=== PATIENT | male | born 1945 | race Caucasian/White ===

== ENCOUNTER 2019-08-15 18:59 | Observation (INO) ==
[2019-08-15 19:48] LABS: Basophils # 0.1 K/mcL (0.0-0.2); Basophils % 0.7 %; Eosinophils # 0.1 K/mcL (0.0-0.6); Eosinophils % 0.7 %; Hemoglobin 13.1 g/dL (12.9-16.9); Immature Granulocytes % 0.6 % (0-4); Lymphocytes # 1.9 K/mcL (0.6-4.6); Lymphocytes % 21.4 %; Mean Corpuscular HGB Conc 32.8 g/dL (31.6-35.5); Mean Corpuscular Hemoglobin 30.3 pg (28.0-33.3); Mean Corpuscular Volume 92.6 fL (83.0-100.0); Mean Platelet Volume 9.7 fL (9.4-12.4); Monocytes # 1.6 K/mcL (0.0-1.3); Monocytes % 18.4 %; Neutrophils # 5.1 K/mcL (1.6-8.9); Platelet Count 469 K/mcL (140-400); Red Blood Count 4.32 M/mcL (4.19-5.50); Red Cell Distribution Width 17.4 % (11.5-14.5); Segmented Neutrophils % 58.2 %; White Blood Count 8.8 K/mcL (4.3-11.1)
[2019-08-15 19:56] LABS: INR 1.1; Prothrombin Time 12.2 Seconds (9.4-12.1)
[2019-08-15 19:59] LABS: Activated Partial Thrombo Time 35.8 Seconds (26.0-36.0)
[2019-08-15 20:13] LABS: BUN/Creatinine Ratio 24 (6-26); Blood Urea Nitrogen 49 mg/dL (8-23); Calcium 9.3 mg/dL (8.6-10.3); Carbon Dioxide 31 mEq/L (23-29); Chloride 97 mEq/L (98-107); Glucose 109 mg/dL (70-105); Osmolality,Calculated 298 (280-300); Potassium 3.9 mEq/L (3.5-5.1); Sodium 137 mEq/L (136-145); Troponin I < 0.03 ng/mL (< 0.04); eGFR For African Americans 39 (> 60); eGFR For Non-African Americans 32 (> 60)
[2019-08-16] MEDS ORDERED: Naloxone 0.4 MG/ML INJ IVP PRN (00:16)
[2019-08-16] MEDS ORDERED: Nitroglycerin 0.4 MG TAB.SUBL SL PRN (00:16)
[2019-08-16] MEDS ORDERED: Morphine Sulfate 2 MG/ML SYRINGE IVP PRN (00:16)
[2019-08-16] MEDS: Apixaban 5 MG TABLET PO SCH ×3 (00:41→21:34)
[2019-08-16] MEDS: Gabapentin 300 MG CAPSULE PO SCH ×3 (00:41→21:34)
[2019-08-16 00:52] LABS: Sodium, Urine 55.9 mEq/L
[2019-08-16 01:39] LABS: Basophils # 0.1 K/mcL (0.0-0.2); Basophils % 0.6 %; Eosinophils # 0.1 K/mcL (0.0-0.6); Eosinophils % 0.7 %; Hematocrit 39.4 % (37.5-50.1); Hemoglobin 12.6 g/dL (12.9-16.9); Immature Granulocytes % 0.5 % (0-4); Lymphocytes # 1.9 K/mcL (0.6-4.6); Mean Corpuscular Hemoglobin 30.1 pg (28.0-33.3); Mean Corpuscular Volume 94.3 fL (83.0-100.0); Mean Platelet Volume 9.8 fL (9.4-12.4); Monocytes # 1.1 K/mcL (0.0-1.3); Monocytes % 13.5 %; Neutrophils # 5.1 K/mcL (1.6-8.9); Platelet Count 419 K/mcL (140-400); Red Blood Count 4.18 M/mcL (4.19-5.50); Red Cell Distribution Width 17.2 % (11.5-14.5); Segmented Neutrophils % 61.7 %; White Blood Count 8.2 K/mcL (4.3-11.1)
[2019-08-16 01:46] LABS: Prothrombin Time 11.5 Seconds (9.4-12.1)
[2019-08-16 02:00] LABS: Albumin 3.8 g/dL (3.5-5.7); Albumin/Globulin Ratio 1.3 (1.1-2.2); Bilirubin,Total 0.4 mg/dL (0.3-1.0); Chol/HDL Ratio 4.1 (0-4.9); Globulin 2.9 g/dL (2.4-3.5); Magnesium 2.2 mg/dL (1.6-2.6); Phosphorous 4.3 mg/dL (2.7-4.5); Potassium 3.8 mEq/L (3.5-5.1); Total Protein 6.7 g/dL (6.4-8.9)
[2019-08-16] MEDS ORDERED: Regadenoson 0.4 MG/5 ML SYRINGE IVP ONE (06:24)
[2019-08-16] MEDS ORDERED: Aspirin 81 MG TAB.CHEW PO SCH (09:00)
[2019-08-16] MEDS: Aspirin Enteric Coated 81 MG Tablet PO SCH (10:11)
[2019-08-16] MEDS ORDERED: Fluticasone Propionate Nasal 50 MCG/SPRAY BOTTLE NS PRN (12:33)
[2019-08-16] MEDS ORDERED: Melatonin 3 MG TABLET PO PRN (12:33)
[2019-08-16] MEDS ORDERED: ALPRAZolam 0.5 MG TABLET PO PRN (12:33)
[2019-08-16] MEDS: Ascorbic Acid 500 MG TABLET PO SCH (15:22)
[2019-08-16] MEDS ORDERED: 0.9 % Sodium Chloride 1,000 ML IVC SCH (15:45)
[2019-08-16] MEDS ORDERED: NON-FORMULARY MEDICATION 1 EACH EACH (Omega-3/Dha/Epa/Fish Oil [Fish Oil 1,000 Mg Softgel] PO SCH (21:00)
[2019-08-17] MEDS: Apixaban 5 MG TABLET PO SCH (08:48)
[2019-08-17] MEDS: Aspirin Enteric Coated 81 MG Tablet PO SCH (08:49)
[2019-08-17] MEDS: Gabapentin 300 MG CAPSULE PO SCH (08:50)
[2019-08-17] MEDS: Ascorbic Acid 500 MG TABLET PO SCH (08:54)
[2019-08-17] MEDS ORDERED: Multivit/Ca/Min/Fe/FA 1 TAB TABLET PO SCH (09:00)
[2019-08-17] MEDS ORDERED: Torsemide 20 MG TABLET PO SCH (09:00)
[2019-08-17] MEDS ORDERED: Fenofibrate 54 MG TABLET PO SCH (09:00)
[2019-08-17 09:54] LABS: Calcium 8.6 mg/dL (8.6-10.3); Potassium 4.1 mEq/L (3.5-5.1)
[2019-08-17 10:57] VITALS: BP 123/63
[2019-08-21] MEDS ORDERED: NON-FORMULARY MEDICATION 1 EACH EACH (Alendronate Sodium 70 MG) PO SCH (12:33)
== END 2019-08-17 13:31 | disposition home or self-care (01) ==
LOC: EMEROOARM 18:59 → 2ANU 18:59 → SUATTDRO 22:10 → 2ANU 23:12
PROVIDERS: ADMIT Family Medicine; ATTEND Internal Medicine

== ENCOUNTER 2020-10-11 15:47 | Inpatient (IN) ==
[2020-10-11] MEDS ORDERED: Isovue-370 500 ML BOTTLE IVP ONE (15:54)
[2020-10-11] MEDS ORDERED: *HR* Dextrose 50 % in Water (Vial) 50 ML VIAL ONE (15:56)
[2020-10-11] MEDS ORDERED: *HR* Dextrose 50 % in Water (Vial) 50 ML VIAL IVP ONE (16:07)
[2020-10-11 16:16] LABS: Hematocrit 40.5 % (37.5-50.1); Hemoglobin 12.9 g/dL (12.9-16.9); Mean Corpuscular HGB Conc 31.9 g/dL (31.6-35.5); Mean Corpuscular Hemoglobin 31.9 pg (28.0-33.3); Mean Corpuscular Volume 100.2 fL (83.0-100.0); Mean Platelet Volume 10.1 fL (9.4-12.4); Platelet Count 385 K/mcL (140-400); Red Blood Count 4.04 M/mcL (4.19-5.50); Red Cell Distribution Width 14.6 % (11.5-14.5); White Blood Count 7.6 K/mcL (4.3-11.1)
[2020-10-11 16:40] LABS: Troponin I < 0.03 ng/mL (< 0.04)
[2020-10-11 16:53] LABS: BUN/Creatinine Ratio 18 (6-26); Blood Urea Nitrogen 36 mg/dL (8-23); Calcium 9.3 mg/dL (8.6-10.3); Carbon Dioxide 31 mEq/L (23-29); Chloride 99 mEq/L (98-107); Glucose 97 mg/dL (70-105); Osmolality,Calculated 294 (280-300); Potassium 3.7 mEq/L (3.5-5.1); Sodium 138 mEq/L (136-145); eGFR For African Americans 41 (> 60); eGFR For Non-African Americans 34 (> 60)
[2020-10-11] MEDS ORDERED: Perflutren Lipid Microsphere 1.3 ML in 0.9 % Sodium Chloride 8.7 ML IVP PRN (18:58)
[2020-10-11] MEDS ORDERED: Acetaminophen 325 MG TABLET PO PRN (19:25)
[2020-10-11] MEDS ORDERED: Naloxone 0.4 MG/ML INJ IVP PRN (19:25)
[2020-10-11] MEDS ORDERED: 0.9 % Sodium Chloride 500 ML IVC SCH (19:30)
[2020-10-11] MEDS ORDERED: D5% in Water 1,000 ML IVC PRN (19:38)
[2020-10-11] MEDS ORDERED: Dextrose Gel 15 GM/37.5 ML TUBE PO PRN ×2 (19:38)
[2020-10-11] MEDS ORDERED: *HR* Dextrose 50 % in Water (Vial) 50 ML VIAL IVP PRN (19:38)
[2020-10-11] MEDS ORDERED: Acetaminophen IV 1,000 MG/100 ML BAG IVPB ONE (20:33)
[2020-10-11] MEDS ORDERED: Melatonin 3 MG TABLET PO SCH (21:00)
[2020-10-11] MEDS: Apixaban 5 MG TABLET PO SCH (21:31)
[2020-10-12 05:29] LABS: Hematocrit 36.2 % (37.5-50.1); Hemoglobin 11.6 g/dL (12.9-16.9); Mean Corpuscular Hemoglobin 31.9 pg (28.0-33.3); Mean Corpuscular Volume 99.5 fL (83.0-100.0); Platelet Count 350 K/mcL (140-400); Red Blood Count 3.64 M/mcL (4.19-5.50); Red Cell Distribution Width 14.7 % (11.5-14.5); White Blood Count 6.4 K/mcL (4.3-11.1)
[2020-10-12 05:45] LABS: BUN/Creatinine Ratio 18 (6-26); Blood Urea Nitrogen 30 mg/dL (8-23); Carbon Dioxide 25 mEq/L (23-29); Chloride 105 mEq/L (98-107); Chol/HDL Ratio 10.4 (0-4.9); Cholesterol 207 mg/dL (< 200); Estimated Average Glucose 120 mg/dl; Glucose 123 mg/dL (70-105); HDL Cholesterol 20 mg/dL (40-59); Hemoglobin A1C 5.8 %; LDL Cholesterol,Calculated 125 mg/dL (< 100); Magnesium 2.2 mg/dL (1.6-2.6); Osmolality,Calculated 294 (280-300); Potassium 3.7 mEq/L (3.5-5.1); Sodium 138 mEq/L (136-145); Triglycerides 310 mg/dL (< 150); Troponin I < 0.03 ng/mL (< 0.04); eGFR For African Americans 50 (> 60); eGFR For Non-African Americans 41 (> 60)
[2020-10-12] MEDS: Fenofibrate 54 MG TABLET PO SCH (07:52)
[2020-10-12] MEDS: Apixaban 5 MG TABLET PO SCH ×2 (07:53→20:09)
[2020-10-12] MEDS: Aspirin Enteric Coated 81 MG Tablet PO SCH (07:53)
[2020-10-12] MEDS: *HR* HYDROcodone/Acet 5/325 mg TABLET PO PRN ×2 (08:53→20:16)
[2020-10-12] MEDS ORDERED: ALPRAZolam 0.5 MG TABLET PO PRN (14:18)
[2020-10-12] MEDS: Gabapentin 300 MG CAPSULE PO SCH (20:09)
[2020-10-12] MEDS: Melatonin 3 MG TABLET PO SCH (20:09)
[2020-10-12] MEDS: Topiramate 25 MG TABLET PO SCH (20:10)
[2020-10-12] MEDS ORDERED: NON-FORMULARY MEDICATION 1 EACH EACH (Omega-3/Dha/Epa/Fish Oil [Fish Oil 1,000 Mg Softgel] PO SCH (21:00)
[2020-10-13 06:14] LABS: Basophils # 0.1 K/mcL (0.0-0.2); Basophils % 0.9 %; Eosinophils % 12.9 %; Hemoglobin 11.7 g/dL (12.9-16.9); Immature Granulocytes % 1.3 % (0-4); Lymphocytes # 1.4 K/mcL (0.6-4.6); Lymphocytes % 17.9 %; Mean Corpuscular HGB Conc 31.6 g/dL (31.6-35.5); Mean Corpuscular Hemoglobin 31.5 pg (28.0-33.3); Mean Corpuscular Volume 99.5 fL (83.0-100.0); Mean Platelet Volume 10.2 fL (9.4-12.4); Monocytes # 1.1 K/mcL (0.0-1.3); Monocytes % 13.7 %; Neutrophils # 4.1 K/mcL (1.6-8.9); Platelet Count 369 K/mcL (140-400); Red Blood Count 3.72 M/mcL (4.19-5.50); Red Cell Distribution Width 14.8 % (11.5-14.5); Segmented Neutrophils % 53.3 %; White Blood Count 7.7 K/mcL (4.3-11.1)
[2020-10-13 06:38] LABS: BUN/Creatinine Ratio 15 (6-26); Blood Urea Nitrogen 19 mg/dL (8-23); Calcium 9.4 mg/dL (8.6-10.3); Carbon Dioxide 21 mEq/L (23-29); Chloride 108 mEq/L (98-107); Glucose 103 mg/dL (70-105); Osmolality,Calculated 287 (280-300); Potassium 3.8 mEq/L (3.5-5.1); Sodium 137 mEq/L (136-145); eGFR For African Americans > 60 (> 60); eGFR For Non-African Americans 55 (> 60)
[2020-10-13 06:58] LABS: Vitamin B12 > 1500 pg/mL (250-1100)
[2020-10-13] MEDS: Fenofibrate 54 MG TABLET PO SCH (08:24)
[2020-10-13] MEDS: Multivit/Ca/Min/Fe/FA 1 TAB TABLET PO SCH (08:24)
[2020-10-13] MEDS: Apixaban 5 MG TABLET PO SCH ×2 (08:24→19:47)
[2020-10-13] MEDS: Topiramate 25 MG TABLET PO SCH ×2 (08:24→19:48)
[2020-10-13] MEDS: Gabapentin 300 MG CAPSULE PO SCH ×2 (08:25→19:47)
[2020-10-13] MEDS: Aspirin Enteric Coated 81 MG Tablet PO SCH (08:25)
[2020-10-13] MEDS: *HR* HYDROcodone/Acet 5/325 mg TABLET PO PRN ×2 (08:28→19:48)
[2020-10-13] MEDS: Melatonin 3 MG TABLET PO SCH (19:48)
[2020-10-14] MEDS: Topiramate 25 MG TABLET PO SCH (08:12)
[2020-10-14] MEDS: Multivit/Ca/Min/Fe/FA 1 TAB TABLET PO SCH (08:12)
[2020-10-14] MEDS: Gabapentin 300 MG CAPSULE PO SCH (08:12)
[2020-10-14] MEDS: Fenofibrate 54 MG TABLET PO SCH (08:12)
[2020-10-14] MEDS: Aspirin Enteric Coated 81 MG Tablet PO SCH (08:12)
[2020-10-14] MEDS: Apixaban 5 MG TABLET PO SCH (08:12)
[2020-10-14 12:12] VITALS: BP 96/53
== END 2020-10-14 13:29 | disposition home or self-care (01) ==
LOC: EMEROOARM 15:47 → 3BNU 15:47 → SUATTDRO 18:07 → 3BNU 19:30 → SUATTDRO 10-12 17:45
PROVIDERS: ADMIT General Practice; ATTEND Internal Medicine

== ENCOUNTER 2020-12-25 22:41 | Inpatient (IN) ==
[2020-12-26] MEDS ORDERED: Naloxone 0.4 MG/ML INJ IVP PRN (00:31)
[2020-12-26] MEDS ORDERED: Ondansetron 4 MG/2 ML VIAL IVP PRN (00:37)
[2020-12-26] MEDS ORDERED: D5% in Water 1,000 ML IVC PRN (00:38)
[2020-12-26] MEDS ORDERED: *HR* Dextrose 50 % in Water (Vial) 50 ML VIAL IVP PRN (00:38)
[2020-12-26] MEDS ORDERED: Dextrose Gel 15 GM/37.5 ML TUBE PO PRN ×2 (00:38)
[2020-12-26 04:08] LABS: Hematocrit 36.8 % (37.5-50.1); Hemoglobin 11.9 g/dL (12.9-16.9); Mean Corpuscular HGB Conc 32.3 g/dL (31.6-35.5); Mean Corpuscular Hemoglobin 30.4 pg (28.0-33.3); Mean Corpuscular Volume 93.9 fL (83.0-100.0); Mean Platelet Volume 9.9 fL (9.4-12.4); Platelet Count 287 K/mcL (140-400); Red Blood Count 3.92 M/mcL (4.19-5.50)
[2020-12-26 04:28] LABS: Alanine Aminotransferase 27 Units/L (7-52); Albumin/Globulin Ratio 0.9 (1.1-2.2); Alkaline Phosphatase 73 Units/L (34-104); Aspartate Amino Transferase 39 Units/L (13-39); BUN/Creatinine Ratio 27 (6-26); Bilirubin,Total 0.5 mg/dL (0.3-1.0); Blood Urea Nitrogen 34 mg/dL (8-23); Calcium 8.4 mg/dL (8.6-10.3); Carbon Dioxide 23 mEq/L (23-29); Chloride 105 mEq/L (98-107); Globulin 3.2 g/dL (2.4-3.5); Glucose 129 mg/dL (70-105); Osmolality,Calculated 289 (280-300); Potassium 3.6 mEq/L (3.5-5.1); Sodium 135 mEq/L (136-145); Total Protein 6.2 g/dL (6.4-8.9); eGFR For African Americans > 60 (> 60); eGFR For Non-African Americans 56 (> 60)
[2020-12-26 11:35] LABS: Estimated Average Glucose 120 mg/dl; Hemoglobin A1C 5.8 %
[2020-12-26] MEDS ORDERED: *HR* HYDROcodone/Acet 7.5/325 mg TABLET PO ONE (11:37)
[2020-12-26] MEDS: *HR* HYDROcodone/Acet 7.5/325 mg TABLET PO PRN (20:59)
[2020-12-27] MEDS ORDERED: Vancomycin 2,000 MG/520 ML IV.SOLN IVPB ONE (02:09)
[2020-12-27] MEDS: *HR* HYDROcodone/Acet 7.5/325 mg TABLET PO PRN ×2 (03:16→12:25)
[2020-12-27 08:55] LABS: Basophils % 0.5 %; Eosinophils # 0.2 K/mcL (0.0-0.6); Eosinophils % 1.8 %; Hematocrit 39.4 % (37.5-50.1); Hemoglobin 12.6 g/dL (12.9-16.9); Lymphocytes # 0.9 K/mcL (0.6-4.6); Lymphocytes % 10.4 %; Mean Corpuscular Hemoglobin 30.7 pg (28.0-33.3); Mean Corpuscular Volume 95.9 fL (83.0-100.0); Mean Platelet Volume 9.7 fL (9.4-12.4); Monocytes # 0.7 K/mcL (0.0-1.3); Monocytes % 8.8 %; Neutrophils # 6.3 K/mcL (1.6-8.9); Platelet Count 285 K/mcL (140-400); Red Blood Count 4.11 M/mcL (4.19-5.50); Red Cell Distribution Width 14.7 % (11.5-14.5); Segmented Neutrophils % 77.5 %; White Blood Count 8.2 K/mcL (4.3-11.1)
[2020-12-27 09:15] LABS: BUN/Creatinine Ratio 25 (6-26); Blood Urea Nitrogen 24 mg/dL (8-23); Calcium 8.8 mg/dL (8.6-10.3); Carbon Dioxide 23 mEq/L (23-29); Chloride 104 mEq/L (98-107); Glucose 127 mg/dL (70-105); Magnesium 2.1 mg/dL (1.6-2.6); Osmolality,Calculated 284 (280-300); Potassium 3.9 mEq/L (3.5-5.1); Sodium 134 mEq/L (136-145); eGFR For African Americans > 60 (> 60); eGFR For Non-African Americans > 60 (> 60)
[2020-12-27] MEDS: Insulin LISPRO 300 UNITS/3 ML VIAL SUBQ SCH ×2 (12:16→16:57)
[2020-12-27] MEDS: Apixaban 5 MG TABLET PO SCH ×2 (12:21→21:52)
[2020-12-27] MEDS: Gabapentin 300 MG CAPSULE PO SCH (12:21)
[2020-12-27] MEDS: Fenofibrate 54 MG TABLET PO SCH (12:21)
[2020-12-27] MEDS: Topiramate 25 MG TABLET PO SCH ×2 (12:21→21:52)
[2020-12-27] MEDS: ALPRAZolam 0.5 MG TABLET PO SCH (12:21)
[2020-12-27] MEDS: Aspirin Enteric Coated 81 MG Tablet PO SCH (12:21)
[2020-12-27] MEDS: Torsemide 20 MG TABLET PO SCH (12:25)
[2020-12-27] MEDS: Vancomycin 1,250 MG/262.5 ML IV.SOLN IVPB SCH (14:32)
[2020-12-27] MEDS: Melatonin 3 MG TABLET PO SCH (21:56)
[2020-12-28] MEDS ORDERED: Vancomycin 1,750 MG/517.5 ML IV.SOLN IVPB SCH (03:00)
[2020-12-28] MEDS: Vancomycin 1,250 MG/262.5 ML IV.SOLN IVPB SCH ×2 (03:01→15:56)
[2020-12-28 04:32] LABS: BUN/Creatinine Ratio 27 (6-26); Blood Urea Nitrogen 29 mg/dL (8-23); Calcium 8.3 mg/dL (8.6-10.3); Carbon Dioxide 24 mEq/L (23-29); Chloride 104 mEq/L (98-107); Glucose 112 mg/dL (70-105); Osmolality,Calculated 285 (280-300); Phosphorous 2.5 mg/dL (2.7-4.5); Potassium 3.8 mEq/L (3.5-5.1); Sodium 134 mEq/L (136-145); eGFR For African Americans > 60 (> 60); eGFR For Non-African Americans > 60 (> 60)
[2020-12-28] MEDS: Insulin LISPRO 300 UNITS/3 ML VIAL SUBQ SCH ×4 (08:02→16:56)
[2020-12-28] MEDS: Topiramate 25 MG TABLET PO SCH ×2 (08:51→19:20)
[2020-12-28] MEDS: ALPRAZolam 0.5 MG TABLET PO SCH (08:51)
[2020-12-28] MEDS: Apixaban 5 MG TABLET PO SCH ×2 (08:52→19:20)
[2020-12-28] MEDS: Aspirin Enteric Coated 81 MG Tablet PO SCH (08:52)
[2020-12-28] MEDS: Gabapentin 300 MG CAPSULE PO SCH (08:52)
[2020-12-28] MEDS: Fenofibrate 54 MG TABLET PO SCH (08:52)
[2020-12-28] MEDS: Torsemide 20 MG TABLET PO SCH (08:55)
[2020-12-28] MEDS: Melatonin 3 MG TABLET PO SCH (19:20)
[2020-12-29 02:38] LABS: BUN/Creatinine Ratio 28 (6-26); Blood Urea Nitrogen 35 mg/dL (8-23); Calcium 8.9 mg/dL (8.6-10.3); Carbon Dioxide 24 mEq/L (23-29); Chloride 104 mEq/L (98-107); Glucose 110 mg/dL (70-105); Magnesium 2.1 mg/dL (1.6-2.6); Osmolality,Calculated 289 (280-300); Phosphorous 2.8 mg/dL (2.7-4.5); Potassium 3.9 mEq/L (3.5-5.1); Sodium 135 mEq/L (136-145); eGFR For African Americans > 60 (> 60); eGFR For Non-African Americans 58 (> 60)
[2020-12-29] MEDS: Insulin LISPRO 300 UNITS/3 ML VIAL SUBQ SCH ×3 (08:26→13:47)
[2020-12-29] MEDS ORDERED: Perflutren Lipid Microsphere 1.3 ML in 0.9 % Sodium Chloride 8.7 ML IVP PRN (08:45)
[2020-12-29] MEDS: Topiramate 25 MG TABLET PO SCH ×2 (08:50→19:54)
[2020-12-29] MEDS: Torsemide 20 MG TABLET PO SCH (08:50)
[2020-12-29] MEDS: ALPRAZolam 0.5 MG TABLET PO SCH (08:50)
[2020-12-29] MEDS: Fenofibrate 54 MG TABLET PO SCH (08:50)
[2020-12-29] MEDS: Aspirin Enteric Coated 81 MG Tablet PO SCH (08:50)
[2020-12-29] MEDS: Gabapentin 300 MG CAPSULE PO SCH (08:50)
[2020-12-29] MEDS: Apixaban 5 MG TABLET PO SCH ×2 (08:51→19:54)
[2020-12-29 12:11] LABS: C-Reactive Protein 62 mg/L (Less than 10)
[2020-12-29] MEDS: Melatonin 3 MG TABLET PO SCH (19:54)
[2020-12-29] MEDS ORDERED: ALPRAZolam 0.5 MG TABLET PO PRN (23:31)
[2020-12-30 05:45] LABS: Basophils # 0.1 K/mcL (0.0-0.2); Eosinophils # 0.2 K/mcL (0.0-0.6); Eosinophils % 2.8 %; Hematocrit 37.1 % (37.5-50.1); Hemoglobin 11.8 g/dL (12.9-16.9); Immature Granulocytes % 2.3 % (0-4); Lymphocytes # 1.6 K/mcL (0.6-4.6); Mean Corpuscular HGB Conc 31.8 g/dL (31.6-35.5); Mean Corpuscular Hemoglobin 30.6 pg (28.0-33.3); Mean Corpuscular Volume 96.4 fL (83.0-100.0); Mean Platelet Volume 9.6 fL (9.4-12.4); Monocytes # 0.8 K/mcL (0.0-1.3); Monocytes % 9.9 %; Neutrophils # 5.2 K/mcL (1.6-8.9); Platelet Count 397 K/mcL (140-400); Red Blood Count 3.85 M/mcL (4.19-5.50); Red Cell Distribution Width 14.6 % (11.5-14.5); White Blood Count 8.1 K/mcL (4.3-11.1)
[2020-12-30 06:05] LABS: BUN/Creatinine Ratio 30 (6-26); Blood Urea Nitrogen 42 mg/dL (8-23); Calcium 8.9 mg/dL (8.6-10.3); Carbon Dioxide 25 mEq/L (23-29); Chloride 106 mEq/L (98-107); Glucose 103 mg/dL (70-105); Osmolality,Calculated 295 (280-300); Potassium 4.1 mEq/L (3.5-5.1); Sodium 137 mEq/L (136-145); eGFR For African Americans > 60 (> 60); eGFR For Non-African Americans 50 (> 60)
[2020-12-30] MEDS ORDERED: Bupivacaine/Clonidine Syringe 20 ML, Syringe LUER-LOK 1 EACH TP ONE (06:45)
[2020-12-30 08:11] LABS: Adenovirus Not Detected (Not Detect); Bordetella Pertussis Not Detected (Not Detect); Chlamydophila pneumoniae Not Detected (Not Detect); Coronavirus 229E Not Detected (Not Detect); Coronavirus HKU1 Not Detected (Not Detect); Coronavirus NL63 Not Detected (Not Detect); Coronavirus OC43 Not Detected (Not Detect); Human Metapneumovirus Not Detected (Not Detect); Human Rhinovirus/Enterovirus Not Detected (Not Detect); Influenza A Subtype 2009 H1 Not Detected (Not Detect); Influenza B Not Detected (Not Detect); Mycoplasma pneumoniae Not Detected (Not Detect); Parainfluenza Virus 1 Not Detected (Not Detect); Parainfluenza Virus 2 Not Detected (Not Detect); Parainfluenza Virus 3 Not Detected (Not Detect); Parainfluenza Virus 4 Not Detected (Not Detect); Respiratory Syncytial Virus Not Detected (Not Detect); SARS-CoV-2 Not Detected (Not Detect)
[2020-12-30] MEDS ORDERED: Lidocaine -MPF 2% 2 ML VIAL ONE (08:57)
[2020-12-30] MEDS ORDERED: *HR* FentaNYL (PF) 100 MCG/2 ML VIAL ONE (08:57)
[2020-12-30] MEDS ORDERED: *HR* Propofol 200 MG/20 ML VIAL IVP ONE (08:58)
[2020-12-30] MEDS ORDERED: *HR* Dextrose 50 % in Water (Vial) 50 ML VIAL IVP PRN (10:13)
[2020-12-30] MEDS ORDERED: Dextrose Gel 15 GM/37.5 ML TUBE PO PRN ×2 (10:13)
[2020-12-30] MEDS ORDERED: ALPRAZolam 0.5 MG TABLET PO PRN (10:13)
[2020-12-30] MEDS ORDERED: Naloxone 0.4 MG/ML INJ IVP PRN (10:13)
[2020-12-30] MEDS ORDERED: D5% in Water 1,000 ML IVC PRN (10:13)
[2020-12-30] MEDS ORDERED: Ondansetron 4 MG/2 ML VIAL IVP PRN (10:13)
[2020-12-30] MEDS ORDERED: Insulin LISPRO 300 UNITS/3 ML VIAL SUBQ SCH (11:30)
[2020-12-30] MEDS: *HR* HYDROcodone/Acet 7.5/325 mg TABLET PO PRN ×2 (11:41→18:30)
[2020-12-30] MEDS: Topiramate 25 MG TABLET PO SCH (22:08)
[2020-12-30] MEDS: Melatonin 3 MG TABLET PO SCH (22:08)
[2020-12-30] MEDS: Apixaban 5 MG TABLET PO SCH (22:09)
[2020-12-31] MEDS: *HR* HYDROcodone/Acet 7.5/325 mg TABLET PO PRN ×2 (01:02→08:01)
[2020-12-31 03:23] LABS: Hematocrit 38.2 % (37.5-50.1); Hemoglobin 11.9 g/dL (12.9-16.9); Immature Granulocytes % 4.2 % (0-4); Lymphocytes % 16.1 %; Mean Corpuscular HGB Conc 31.2 g/dL (31.6-35.5); Mean Corpuscular Hemoglobin 30.6 pg (28.0-33.3); Mean Corpuscular Volume 98.2 fL (83.0-100.0); Mean Platelet Volume 9.8 fL (9.4-12.4); Monocytes % 10.7 %; Platelet Count 432 K/mcL (140-400); Red Blood Count 3.89 M/mcL (4.19-5.50); Red Cell Distribution Width 14.8 % (11.5-14.5); Segmented Neutrophils % 65.1 %; White Blood Count 10.8 K/mcL (4.3-11.1)
[2020-12-31 03:24] LABS: Basophils # 0.1 K/mcL (0.0-0.2); Basophils % 0.9 %; Eosinophils # 0.3 K/mcL (0.0-0.6); Lymphocytes # 1.8 K/mcL (0.6-4.6); Monocytes # 1.2 K/mcL (0.0-1.3)
[2020-12-31 03:33] LABS: Potassium 4.2 mEq/L (3.5-5.1)
[2020-12-31] MEDS: Fenofibrate 54 MG TABLET PO SCH (08:01)
[2020-12-31] MEDS: Topiramate 25 MG TABLET PO SCH ×2 (08:02→20:31)
[2020-12-31] MEDS: Aspirin Enteric Coated 81 MG Tablet PO SCH (08:02)
[2020-12-31] MEDS: ALPRAZolam 0.5 MG TABLET PO SCH (08:03)
[2020-12-31] MEDS: Apixaban 5 MG TABLET PO SCH ×2 (08:03→20:31)
[2020-12-31] MEDS: Gabapentin 300 MG CAPSULE PO SCH (08:03)
[2020-12-31] MEDS: Torsemide 20 MG TABLET PO SCH (08:03)
[2020-12-31] MEDS: Melatonin 3 MG TABLET PO SCH (20:32)
[2021-01-01 01:18] LABS: Basophils # 0.1 K/mcL (0.0-0.2); Basophils % 1.1 %; Eosinophils # 0.3 K/mcL (0.0-0.6); Eosinophils % 2.9 %; Hematocrit 36.4 % (37.5-50.1); Hemoglobin 11.6 g/dL (12.9-16.9); Immature Granulocytes % 4.2 % (0-4); Lymphocytes # 1.6 K/mcL (0.6-4.6); Lymphocytes % 17.1 %; Mean Corpuscular HGB Conc 31.9 g/dL (31.6-35.5); Mean Corpuscular Hemoglobin 30.1 pg (28.0-33.3); Mean Corpuscular Volume 94.5 fL (83.0-100.0); Mean Platelet Volume 9.4 fL (9.4-12.4); Monocytes # 0.9 K/mcL (0.0-1.3); Monocytes % 9.7 %; Platelet Count 465 K/mcL (140-400); Red Blood Count 3.85 M/mcL (4.19-5.50); Red Cell Distribution Width 14.7 % (11.5-14.5); White Blood Count 9.3 K/mcL (4.3-11.1)
[2021-01-01 01:43] LABS: BUN/Creatinine Ratio 30 (6-26); Blood Urea Nitrogen 36 mg/dL (8-23); Carbon Dioxide 22 mEq/L (23-29); Chloride 105 mEq/L (98-107); Glucose 100 mg/dL (70-105); Osmolality,Calculated 292 (280-300); Potassium 3.9 mEq/L (3.5-5.1); Sodium 137 mEq/L (136-145); eGFR For African Americans > 60 (> 60); eGFR For Non-African Americans 58 (> 60)
[2021-01-01] MEDS: Aspirin Enteric Coated 81 MG Tablet PO SCH ×2 (08:30→09:19)
[2021-01-01] MEDS: Gabapentin 300 MG CAPSULE PO SCH ×2 (08:30→09:19)
[2021-01-01] MEDS: Fenofibrate 54 MG TABLET PO SCH ×2 (08:30→09:21)
[2021-01-01] MEDS: Topiramate 25 MG TABLET PO SCH ×3 (08:30→22:04)
[2021-01-01] MEDS: Apixaban 5 MG TABLET PO SCH ×3 (08:30→22:04)
[2021-01-01] MEDS: Torsemide 20 MG TABLET PO SCH ×2 (08:30→09:19)
[2021-01-01] MEDS: ALPRAZolam 0.5 MG TABLET PO SCH ×2 (08:31→09:21)
[2021-01-01] MEDS: Insulin LISPRO 300 UNITS/3 ML VIAL SUBQ SCH (09:21)
[2021-01-01] MEDS ORDERED: Lidocaine -MPF 1% 5 ML AMPUL INFILT ONE (12:26)
[2021-01-01] MEDS ORDERED: Saline Nasal Spray 44 ML BOTTLE NS PRN (13:54)
[2021-01-01] MEDS: Melatonin 3 MG TABLET PO SCH (22:04)
[2021-01-02 03:59] LABS: Basophils # 0.1 K/mcL (0.0-0.2); Eosinophils # 0.2 K/mcL (0.0-0.6); Eosinophils % 2.8 %; Hematocrit 35.9 % (37.5-50.1); Hemoglobin 11.7 g/dL (12.9-16.9); Immature Granulocytes % 3.6 % (0-4); Lymphocytes # 1.6 K/mcL (0.6-4.6); Lymphocytes % 18.8 %; Mean Corpuscular HGB Conc 32.6 g/dL (31.6-35.5); Mean Platelet Volume 9.5 fL (9.4-12.4); Monocytes # 0.9 K/mcL (0.0-1.3); Monocytes % 10.9 %; Neutrophils # 5.4 K/mcL (1.6-8.9); Platelet Count 510 K/mcL (140-400); Red Blood Count 3.78 M/mcL (4.19-5.50); Red Cell Distribution Width 14.8 % (11.5-14.5); Segmented Neutrophils % 62.9 %; White Blood Count 8.6 K/mcL (4.3-11.1)
[2021-01-02 04:20] LABS: BUN/Creatinine Ratio 30 (6-26); Blood Urea Nitrogen 42 mg/dL (8-23); Calcium 9.1 mg/dL (8.6-10.3); Carbon Dioxide 25 mEq/L (23-29); Chloride 104 mEq/L (98-107); Glucose 115 mg/dL (70-105); Osmolality,Calculated 295 (280-300); Potassium 3.9 mEq/L (3.5-5.1); Sodium 137 mEq/L (136-145); eGFR For African Americans > 60 (> 60); eGFR For Non-African Americans 50 (> 60)
[2021-01-02] MEDS: Aspirin Enteric Coated 81 MG Tablet PO SCH (08:12)
[2021-01-02] MEDS: Torsemide 20 MG TABLET PO SCH (08:12)
[2021-01-02] MEDS: ALPRAZolam 0.5 MG TABLET PO SCH (08:12)
[2021-01-02] MEDS: Topiramate 25 MG TABLET PO SCH ×2 (08:12→20:30)
[2021-01-02] MEDS: Fenofibrate 54 MG TABLET PO SCH (08:12)
[2021-01-02] MEDS: Apixaban 5 MG TABLET PO SCH ×2 (08:13→20:31)
[2021-01-02] MEDS: Gabapentin 300 MG CAPSULE PO SCH (08:13)
[2021-01-02] MEDS ORDERED: *HR* FentaNYL (PF) 100 MCG/2 ML VIAL IVP PRN (12:22)
[2021-01-02] MEDS ORDERED: Lidocaine Viscous Oral Soln 15 ML SOLUTION MM PRN (12:22)
[2021-01-02] MEDS ORDERED: 0.9 % Sodium Chloride 500 ML IVC ONE (12:22)
[2021-01-02] MEDS: *HR* Midazolam HCl 5 MG/5 ML VIAL IVP PRN ×2 (13:20→13:25)
[2021-01-02 19:00] VITALS: BP 120/82
[2021-01-02] MEDS: Melatonin 3 MG TABLET PO SCH (20:34)
== END 2021-01-02 21:25 | disposition short-term general hospital (02) | DRG 856 ==
LOC: 3BNU → SUATTDRO 12-26 00:24 → 3BNU 12-29 09:44
PROVIDERS: ADMIT Internal Medicine; ATTEND Internal Medicine